=== PATIENT | male | born 1965 | race African-American/Black ===

== ENCOUNTER 2018-05-26 13:01 | Emergency (ER) | payer OTHER ==
[~2018-05-26] VITALS: Ht 188 cm; Wt 102.1 kg
== END 2018-05-26 14:00 | disposition home or self-care (01) ==
LOC: FSED 13:01
DX: R05 Cough (principal); J00 Acute nasopharyngitis [common cold]; H92.02 Otalgia, left ear; E78.5 Hyperlipidemia, unspecified
CPT/HCPCS: 99283